=== PATIENT | female | born 1965 | race Caucasian/White ===

== ENCOUNTER 2017-01-12 07:17 | Inpatient (IN) | payer OTHER ==
[~2017-01-12] VITALS: Ht 152.4 cm; Wt 78.2 kg
[2017-01-12 08:18] LABS: BASOPHIL % 0.4 % (0-2); PLATELET COUNT 320 x10^3mcL (130-400)
[2017-01-12 08:19] LABS: RED CELL DISTRIBUTION WIDTH 19.3 % (11.5-14.5)
[2017-01-12 08:22] LABS: rbc morphology (normal/abnorm) ABNORMAL (NORMAL)
[2017-01-12 08:23] LABS: CALCIUM 8.5 mg/dL (8.5-10.1); CARBON DIOXIDE 23.6 mmol/L (21-32); CHLORIDE SERUM 106 mmol/L (98-107); CREATININE SERUM 0.6 mg/dL (0.6-1.0); GFR1 > 60 mL/min; GLUCOSE SERUM 98 mg/dL (74-106); POTASSIUM SERUM 3.8 mmol/L (3.5-5.1); SODIUM SERUM 139 mmol/L (136-145)
[2017-01-12 08:29] LABS: ALKALINE PHOSPHATASE 86 U/L (46-116); ALT/SGPT 36 U/L (14-59); AST/SGOT 16 U/L (15-37); BILIRUBIN TOTAL 0.35 mg/dL (0.20-1.00); CHOLESTEROL 161 mg/dL (<200); HDL CHOLESTEROL 50 mg/dL (40-60); PHOSPHOROUS 3.3 mg/dL (2.5-4.9); TOTAL PROTEIN, SERUM 6.2 g/dL (6.4-8.2); URIC ACID 4.3 mg/dL (2.6-6.0)
[2017-01-12 08:30] LABS: ALBUMIN 3.3 g/dL (3.4-5.0)
[2017-01-12 09:39] LABS: CHOLESTEROL/HDL RATIO 3.3; MAGNESIUM 1.9 mg/dL (1.8-2.4)
[2017-01-12 09:49] LABS: FREE T4 0.94 ng/dL (0.76-1.46); FREE THYROXINE INDEX 2.5 ug/dL (1.4-4.5); T4(THYROXINE) 7.7 ug/dL (4.7-13.3)
[2017-01-12 09:51] VITALS: BP 111/66
[2017-01-12 09:59] LABS: T3 TOTAL 1.06 ng/mL
[2017-01-12 10:08] LABS: RED BLOOD CELLS 3.07 M/mm3 (4.10-5.10)
[2017-01-12 10:32] LABS: microscopic required? YES; urine erythrocyte TRACE (NEGATIVE)
[2017-01-12 10:39] LABS: AMPHETAMINE QUAL UR NONE DETECTED (NEG <=1000)
[2017-01-12 12:19] LABS: BASOPHIL % 1.1 % (0-2); PLATELET COUNT 287 x10^3mcL (130-400)
[2017-01-12 12:23] LABS: RED CELL DISTRIBUTION WIDTH 18.5 % (11.5-14.5)
[2017-01-12 12:25] LABS: rbc morphology (normal/abnorm) ABNORMAL (NORMAL)
[2017-01-12 12:55] VITALS: BP 97/62
[2017-01-12 17:03] VITALS: BP 108/60
[2017-01-12 21:39] VITALS: BP 97/56
[2017-01-13] VITALS (8 sets, daily range): BP systolic 98–122; BP diastolic 56–72
[2017-01-13 06:00] LABS: BASOPHIL % 0.4 % (0-2); PLATELET COUNT 289 x10^3mcL (130-400)
[2017-01-13 06:19] LABS: CALCIUM 8.4 mg/dL (8.5-10.1); CARBON DIOXIDE 25.7 mmol/L (21-32); CHLORIDE SERUM 107 mmol/L (98-107); CREATININE SERUM 0.6 mg/dL (0.6-1.0); GFR1 > 60 mL/min; GLUCOSE SERUM 94 mg/dL (74-106); SODIUM SERUM 140 mmol/L (136-145)
[2017-01-13 07:16] LABS: RED CELL DISTRIBUTION WIDTH 19.2 % (11.5-14.5)
[2017-01-13 07:22] LABS: rbc morphology (normal/abnorm) ABNORMAL (NORMAL)
[2017-01-13 09:21] LABS: RED BLOOD CELLS 3.09 M/mm3 (4.10-5.10)
[2017-01-14 01:31] LABS: BASOPHIL % 0.7 % (0-2); PLATELET COUNT 338 x10^3mcL (130-400)
[2017-01-14 04:51] VITALS: BP 104/71
[2017-01-14 06:34] LABS: BASOPHIL % 0.4 % (0-2); PLATELET COUNT 307 x10^3mcL (130-400)
[2017-01-14 06:49] LABS: ALBUMIN 3.4 g/dL (3.4-5.0); CALCIUM 8.5 mg/dL (8.5-10.1); CARBON DIOXIDE 23.6 mmol/L (21-32); CHLORIDE SERUM 109 mmol/L (98-107); CREATININE SERUM 0.6 mg/dL (0.6-1.0); GFR1 > 60 mL/min; GLUCOSE SERUM 102 mg/dL (74-106); MAGNESIUM 2.1 mg/dL (1.8-2.4); PHOSPHOROUS 3.2 mg/dL (2.5-4.9); POTASSIUM SERUM 3.7 mmol/L (3.5-5.1); SODIUM SERUM 143 mmol/L (136-145)
[2017-01-14 07:15] LABS: RED CELL DISTRIBUTION WIDTH 25.6 % (11.5-14.5)
[2017-01-14 08:49] VITALS: Ht 152.4 cm; Wt 78.2 kg
[2017-01-14 09:25] VITALS: BP 116/72
[2017-01-14] MEDS ORDERED: FER300 PO (13:39)
[2017-01-14] MEDS ORDERED: VITC PO (13:40)
[2017-01-14] MEDS ORDERED: LAC PO (13:42)
[2017-01-14] MEDS ORDERED: AMOXICILLIN500 MG PO (13:47)
[2017-01-14] MEDS ORDERED: OMEPRAZOLE20 M4 PO (13:49)
[2017-01-14] MEDS ORDERED: CLARITHROMYCIN500 M1 PO (13:51)
[2017-01-14] MEDS ORDERED: LAC30L PO (13:54)
[2017-01-14 14:05] VITALS: BP 116/72
[2017-01-14 14:41] VITALS: BP 104/62
== END 2017-01-14 17:19 | disposition home or self-care (01) | DRG 378 ==
LOC: ED 07:17 → DU 08:33
PROVIDERS: Emergency Medicine; Family Medicine; Internal Medicine Gastroenterology; ADMIT Family Medicine
PROC: 0D758ZZ Dilation of Esophagus, Via Natural or Artificial Opening Endoscopic (ICD-10-PCS; 2017-01-13)
PROC: 30233N1 Transfusion of Nonautologous Red Blood Cells into Peripheral Vein, Percutaneous Approach (ICD-10-PCS; principal; 2017-01-13 15:00)
PROC: 0DB58ZX Excision of Esophagus, Via Natural or Artificial Opening Endoscopic, Diagnostic (ICD-10-PCS; 2017-01-13 15:00)
PROC: 0DB68ZX Excision of Stomach, Via Natural or Artificial Opening Endoscopic, Diagnostic (ICD-10-PCS; 2017-01-13 15:00)
PROC: 0DJD8ZZ Inspection of Lower Intestinal Tract, Via Natural or Artificial Opening Endoscopic (ICD-10-PCS; 2017-01-14)
DX: K25.4 Chronic or unspecified gastric ulcer with hemorrhage (principal); N39.0 Urinary tract infection, site not specified; E44.0 Moderate protein-calorie malnutrition; K22.2 Esophageal obstruction; R31.9 Hematuria, unspecified; E02 Subclinical iodine-deficiency hypothyroidism; D50.9 Iron deficiency anemia, unspecified; K44.9 Diaphragmatic hernia without obstruction or gangrene; K57.30 Diverticulosis of large intestine without perforation or abscess without bleeding; D72.829 Elevated white blood cell count, unspecified; Z68.33 Body mass index [BMI] 33.0-33.9, adult; Z90.49 Acquired absence of other specified parts of digestive tract
CPT/HCPCS: 43220; 43235; 45378; 83880; 84439; C1769; J0696; J1200; J1610; J2250; J2310; J2916; J3010; J3490; J7040; J7050; P9016; Q0092; Q0163